=== PATIENT | male | born 1995 ===

== ENCOUNTER 2017-04-01 20:46 | Emergency (ER) | payer SELFPAY ==
[2017-04-01 20:56] VITALS: BP 121/79
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
== END 2017-04-01 21:54 | disposition home or self-care (01) ==
LOC: UCCORT 20:46
DX: S00.33XA Contusion of nose, initial encounter (principal); S16.1XXA Strain of muscle, fascia and tendon at neck level, initial encounter; W50.0XXA Accidental hit or strike by another person, initial encounter; Y93.75 Activity, martial arts; Y92.9 Unspecified place or not applicable; Z88.0 Allergy status to penicillin
CPT/HCPCS: 70160; 72050; 99201; G0463